=== PATIENT | male | born 1975 | race Caucasian/White ===

== ENCOUNTER 2023-03-19 09:15 | Outpatient (AMB) | payer BC, SELFPAY ==
--- NOTE | 2023-03-19 09:27 | HO.SPINEOV ---
Intake Intake Visit Reasons: slipped disc in L5S1 with crowding mass Intake Note: Mr. Mayers is here today c/o low back pain. MRI done @ [facility]/brought disc. 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 He has been battling with this for about 18 months. It comes and goes on and off. He will have occasional flare-ups and when he does he will just do activity modifications and try things like Motrin Tylenol. To this point has had no dedicated conservative treatment. He had an MRI done showing bulging/ herniated disc at L5-S1 on the left with crowding of the left S1 nerve root and he was sent today for evaluation. He does not report any weakness of his left leg. It is more painful and numb and bothersome with activities. PMH: He had a repair of a patent ductus arteriosus when he was 4 years old, right wrist surgery, bilateral knee surgery, he has a heart murmur and was also told recently he has an aortic aneurysm. He did not know what part of the aorta it was in. 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 Impression: 47-year-old gentleman presents with on and off left-sided lumbar radiculopathy going down the back of his leg into his calf with a bulging/herniated disc at L5-S1 on the left. He has recently gone through flare-up which has resolved. At this time he is not interested in surgery, but is wishing to just discuss the status of his back and we reviewed his MRI together and discussed the natural history of degenerative disc disease. I gave him a referral to physical therapy, just in case he does want to consider doing surgery down the road he would need to complete this before his insurance would allow an operation. I encourage him to continue to treat his flare-ups as he has been doing with nonsteroidal anti-inflammatories, Tylenol and rest. He will call us down the road if he wishes to consider surgery. I suspect he would do very well with a left L5-S1 decompression and possible diskectomy. Thank you for allowing us to care for your patient. The total time spent with this visit with this patient was 45 minutes reviewing history, physical exam, lumbar imaging review, and implementation of treatment plan or further diagnostic testing Chad Tabares MD,PhD [facility] Orders: Orders PT Evaluation and Treatment Today M51.26 - Other intervertebral disc displacement, lumbar region Coding Level of Care Code New Pt Level 4 (42756) Diagnoses Lumbar disc herniation M51.26
== END 2023-03-19 10:57 | disposition home or self-care (01) ==
PROVIDERS: PCP Internal Medicine; Referring Provider Internal Medicine; Visit Provider Physician Assistant
DX: M51.26 Other intervertebral disc displacement, lumbar region (principal)
CPT/HCPCS: 99204

== ENCOUNTER → 2023-03-19 09:15 | Outpatient (BNVA) | payer BC, SELFPAY | PROVIDERS: Visit Provider Physician Assistant ==